=== PATIENT | female | born 1995 | race Hispanic/Latino ===

== ENCOUNTER 2016-11-10 11:46 | Emergency (ER) | payer OTHER ==
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
[2016-11-10] MEDS ORDERED: TYLENOL #3 PO ONE (15:38)
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
[2016-11-10 17:01] VITALS: BP 114/76
== END 2016-11-10 17:01 | disposition home or self-care (01) ==
LOC: ED 11:46
DX: S02.2XXA Fracture of nasal bones, initial encounter for closed fracture (principal); S00.83XA Contusion of other part of head, initial encounter; S00.33XA Contusion of nose, initial encounter; M25.531 Pain in right wrist; J45.909 Unspecified asthma, uncomplicated; F17.200 Nicotine dependence, unspecified, uncomplicated; V89.2XXA Person injured in unspecified motor-vehicle accident, traffic, initial encounter; W22.10XA Striking against or struck by unspecified automobile airbag, initial encounter; Y93.89 Activity, other specified; Y99.8 Other external cause status; Y92.89 Other specified places as the place of occurrence of the external cause
CPT/HCPCS: 70486; 81025

== ENCOUNTER 2020-06-13 11:11 | Outpatient (CLI) | payer MEDICAID | END 2020-06-13 14:12 | disposition home or self-care (01) | LOC: LAB 11:11 → APU 13:50 → LAB 14:12 | PROVIDERS: ATTEND Obstetrics & Gynecology | DX: O26.893 Other specified pregnancy related conditions, third trimester (principal); Z67.11 Type A blood, Rh negative; O99.343 Other mental disorders complicating pregnancy, third trimester; J45.909 Unspecified asthma, uncomplicated; Z3A.29 29 weeks gestation of pregnancy; Z87.891 Personal history of nicotine dependence | CPT/HCPCS: 86850; 86900; 86901; 96372; J2790 ==

== ENCOUNTER 2020-08-17 21:50 | Inpatient (IN) | payer MEDICAID ==
[2020-08-17] MEDS ORDERED: MINERAL OIL 30 ML ORAL LIQD PO PRN (23:25)
[2020-08-17] MEDS ORDERED: LIDOCAINE (2%) 20 MG/1 ML VIAL 20 ML MDV INFILTRATI ONE (23:25)
[2020-08-17] MEDS ORDERED: TERBUTALINE 1 MG/1 ML INJ SUB-Q PRN (23:25)
[2020-08-17] MEDS ORDERED: fentaNYL 100 MCG/2 ML INJ IV PRN (23:25)
[2020-08-17] MEDS ORDERED: ONDANSETRON 4 MG/2 ML INJ IV PRN (23:25)
[2020-08-17] MEDS ORDERED: LACTATED RINGERS 1,000 ML IV SCH (23:30)
[2020-08-17] MEDS ORDERED: OXYTOCIN DRIP 30 UNITS/500 ML BAG IV SCH (23:45)
--- NOTE | 2020-08-18 00:37 | Ultrasound Report ---
ULTRASOUND OBSTETRIC LIMITED INDICATION / CLINICAL INFORMATION: PRESENTATION. Clinical Gestational Age (GA) in weeks, days: 38, 4 TECHNIQUE: Transabdominal. COMPARISON: None available. FINDINGS: HEART RATE (beats per minute): 136 AMNIOTIC FLUID INDEX (cm) = not evaluated (normal = 7-24 cm) PRESENTATION: Cephalic. ADDITIONAL FINDINGS: None. IMPRESSION: 1. Cephalic presentation. Signer Name: Calvin Randall MD Signed: 08/18/2020 12:33 AM Workstation Name: [id number]
[2020-08-18 01:33] LABS: Alanine Aminotransferase 9 units/L (7-56)
[2020-08-18 01:35] LABS: Mean Corpuscular HGB Conc 34 % (30-34); Mean Corpuscular Volume 95 fl (79-97); Platelet Count 165 K/mm3 (140-440); Red Blood Count 4.34 M/mm3 (3.65-5.03); Red Cell Distribution Width 13.4 % (13.2-15.2)
[2020-08-18] MEDS ORDERED: ePHEDrine SULFATE 50 MG/1 ML INJ IV PRN (02:56)
[2020-08-18] MEDS ORDERED: NALOXONE 2 MG/2 ML INJ IV PRN (02:56)
--- NOTE | 2020-08-18 02:57 | Anesthesia Consultation ---
Anesthesia Consult and Med Hx Date of service: 08/18/20 - Airway Anesthetic Teeth Evaluation: Chipped ROM Head & Neck: Adequate Mental/Hyoid Distance: Adequate Mallampati Class: Class II Intubation Access Assessment: Probably Good - Pulmonary Exam CTA: Yes - Cardiac Exam Cardiac Exam: RRR - Pre-Operative Health Status ASA Pre-Surgery Classification: ASA2 Proposed Anesthetic Plan: Epidural - Pulmonary Hx Asthma: Yes (last attack 2 years ago) COPD: No Hx Pneumonia: No - Cardiovascular System Hx Hypertension: No - Central Nervous System Hx Seizures: No Hx Psychiatric Problems: Yes (anxiety) - Endocrine Hx Renal Disease: No Hx End Stage Renal Disease: No Hx Hypothyroidism: No Hx Hyperthyroidism: No - Hematic Hx Anemia: No Hx Sickle Cell Disease: No - Other Systems Hx Alcohol Use: (not since ) Hx Obesity: Yes
--- NOTE | 2020-08-18 02:58 | Progress Note ---
Labor Epidural - Labor Epidural Start Time: 02:45 Stop Time: 02:49 Performed by:: PORTIA VALLADARES Procedure: Patient is requesting epidural for labor pain. H&P, and labs reviewed. Procedure explained, questions answered, consent obtained. Patient in sitting position with blood pressure cuff and pulse ox on and working. Timeout performed immediately before start of procedure. Sterile chlorahexadine 0.5% prep/drape. 3 mL 1% lidocaine skin wheal at L[3]-L[4]. 18-gauge MTailor epidural needle advanced to [id number] with saline at [7] cm. Epidural dexmedetomidine [30] mcg administered. Epidural catheter advanced to [12] cm, negative aspiration for blood and csf, negative test dose 3 ml 1.5% lidocaine with epinephrine. Sterile steri-strips and tegaderm applied, followed by tape reinforcement. Patient tolerated procedure well.
[2020-08-18 03:02] LABS: Uric Acid 6.2 mg/dL (3.5-7.6)
[2020-08-18] MEDS: fentaNYL-BUPIV 2 MCG/ML-0.125% 200 MCG/100 ML BAG EPIDURAL SCH ×2 (03:30→11:35)
--- NOTE | 2020-08-18 04:24 | History and Physical Report ---
History of Present Illness Date of examination: 08/18/20 Date of admission: 08/17/20 23:26 Chief complaint: contractions History of present illness: 25yo a 38w5d presents with contractions. She reports symptoms beginning last pm increasing in intensity and frequency. At initial presentation, she denies leakage of fluid or vaginal bleeding. She acknowledges movement. No additional complaints. Past History - Obstetrical History : 1 Medications and Allergies Allergies Allergy/AdvReac Type Severity Reaction Status Date / Time No Known Allergies Allergy Unverified 11/10/16 12:11 Home Medications Medication Instructions Recorded Confirmed Last Taken Type Acetaminophen/Codeine [Tylenol 1 tab PO Q4HR PRN #20 tablet 11/10/16 Unknown Rx /Codeine # 3 tab] Active Meds: Active Medications Ephedrine Sulfate (Ephedrine Sulfate 50 Mg/1 Ml Inj) 10 mg IV Q2M PRN PRN Reason: Hypotension Ephedrine Sulfate (Ephedrine Sulfate 50 Mg/1 Ml Inj) 10 mg IV Q2M PRN PRN Reason: Hypotension Fentanyl (Fentanyl 100 Mcg/2 Ml Inj) 100 mcg IV Q2H PRN PRN Reason: Pain,Severe (7-10) LABOR PAIN Last Admin: 08/18/20 00:47 Dose: 100 mcg Documented by: Lactated Ringer's (Lactated Ringers) 1,000 mls @ 125 mls/hr IV DIRECT SHABNAM Oxytocin/Sodium Chloride (Pitocin/Ns 30 Unit/500ml) 30 units in 500 mls @ 40 mls/hr IV TITR SHABNAM; Protocol Oxytocin/Sodium Chloride (Pitocin/Ns 30 Unit/500ml) 30 units in 500 mls @ 2 mls/hr IV TITR SHABNAM; Protocol Fentanyl/Bupivacaine/Sodium Chlor (Fentanyl-Bupiv 2 Mcg/Ml-0.125%) 200 mcg in 100 mls @ 12 mls/hr EPIDURAL TITR SHABNAM; Protocol Last Admin: 08/18/20 03:30 Dose: 12 mls/hr Documented by: Mineral Oil (Mineral Oil 30 Ml Oral Liqd) 30 ml PO QHS PRN PRN Reason: Constipation Naloxone HCl (Naloxone 2 Mg/2 Ml Inj) 0.2 mg IV Q5M PRN PRN Reason: Respiratory sedation Ondansetron HCl (Ondansetron 4 Mg/2 Ml Inj) 4 mg IV Q8H PRN PRN Reason: Nausea And Vomiting Terbutaline Sulfate (Terbutaline 1 Mg/1 Ml Inj) 0.25 mg SUB-Q ONCE PRN PRN Reason: Hyperstimulation/Hypertonicity - Vital Signs Vital signs: Vital Signs Temp Pulse Resp BP Pulse Ox 99 F 80 18 144/95 97 08/17/20 22:01 08/17/20 22:01 08/17/20 22:01 08/17/20 22:01 08/17/20 22:01 Temp Pulse Resp BP Pulse Ox 98.8 F 88 15 113/65 97 08/18/20 04:09 08/18/20 04:06 08/18/20 04:09 08/18/20 03:55 08/18/20 04:06 Results Result Diagrams: 08/17/20 01:00 08/17/20 01:00 Abnormal lab results 08/17/20 08/17/20 Range/Units 01:00 01:00 WBC 13.8 H (4.5-11.0) K/mm3 Lactate Dehydrogenase 219 H (91-180) units/L All other labs normal.
[2020-08-18 04:36] LABS: Creatinine,Urine 292.8 mg/dL (0.1-20.0); Protein/Creatinine Ratio,Urine 0.56
[2020-08-18 04:46] LABS: Color,Urine Amber (Yellow)
[2020-08-18 04:48] LABS: Bacteria,Urine 1+ /HPF (Negative); Epithelial Casts,Urine 4 /HPF; Ictotest,Urine Negative (Negative)
[2020-08-18] MEDS: ePHEDrine SULFATE 50 MG/1 ML INJ IV PRN ×2 (05:01→06:26)
--- NOTE | 2020-08-18 06:06 | History and Physical Report ---
History of Present Illness Date of examination: 08/18/20 Date of admission: 08/17/20 23:26 Chief complaint: Contractions History of present illness: 25yo G1 at 38w5d presents with contractions. She reports contractions beginning last pm increasing in intensity and frequency. At presentation she denied leakage of fluid or vaginal bleeding. She has no additional complaints. Her has been complicated by depression, hsv II, obesity and rh negative status. PNC per [facility]. 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 Social history: no significant social history - Obstetrical History : 1 Para: 0 Medications and Allergies Allergies Allergy/AdvReac Type Severity Reaction Status Date / Time No Known Allergies Allergy Unverified 11/10/16 12:11 Home Medications Medication Instructions Recorded Confirmed Last Taken Type Acetaminophen/Codeine [Tylenol 1 tab PO Q4HR PRN #20 tablet 11/10/16 Unknown Rx /Codeine # 3 tab] Active Meds: Active Medications Ephedrine Sulfate (Ephedrine Sulfate 50 Mg/1 Ml Inj) 10 mg IV Q2M PRN PRN Reason: Hypotension Last Admin: 08/18/20 05:01 Dose: 10 mg Documented by: Ephedrine Sulfate (Ephedrine Sulfate 50 Mg/1 Ml Inj) 10 mg IV Q2M PRN PRN Reason: Hypotension Fentanyl (Fentanyl 100 Mcg/2 Ml Inj) 100 mcg IV Q2H PRN PRN Reason: Pain,Severe (7-10) LABOR PAIN Last Admin: 08/18/20 00:47 Dose: 100 mcg Documented by: Lactated Ringer's (Lactated Ringers) 1,000 mls @ 125 mls/hr IV DIRECT SHABNAM Oxytocin/Sodium Chloride (Pitocin/Ns 30 Unit/500ml) 30 units in 500 mls @ 40 mls/hr IV TITR SHABNAM; Protocol Oxytocin/Sodium Chloride (Pitocin/Ns 30 Unit/500ml) 30 units in 500 mls @ 2 mls/hr IV TITR SHABNAM; Protocol Fentanyl/Bupivacaine/Sodium Chlor (Fentanyl-Bupiv 2 Mcg/Ml-0.125%) 200 mcg in 100 mls @ 12 mls/hr EPIDURAL TITR SHABNAM; Protocol Last Admin: 08/18/20 03:30 Dose: 12 mls/hr Documented by: Mineral Oil (Mineral Oil 30 Ml Oral Liqd) 30 ml PO QHS PRN PRN Reason: Constipation Naloxone HCl (Naloxone 2 Mg/2 Ml Inj) 0.2 mg IV Q5M PRN PRN Reason: Respiratory sedation Ondansetron HCl (Ondansetron 4 Mg/2 Ml Inj) 4 mg IV Q8H PRN PRN Reason: Nausea And Vomiting Terbutaline Sulfate (Terbutaline 1 Mg/1 Ml Inj) 0.25 mg SUB-Q ONCE PRN PRN Reason: Hyperstimulation/Hypertonicity Review of Systems Cardiovascular: no chest pain, no shortness of breath Respiratory: no cough Gastrointestinal: no abdominal pain - Vital Signs Vital signs: Vital Signs Temp Pulse Resp BP Pulse Ox 99 F 80 18 144/95 97 08/17/20 22:01 08/17/20 22:01 08/17/20 22:01 08/17/20 22:01 08/17/20 22:01 Temp Pulse Resp BP Pulse Ox 98.7 F 116 H 15 126/52 99 08/18/20 05:37 08/18/20 05:56 08/18/20 04:09 08/18/20 05:55 08/18/20 05:56 - Physical Exam Breasts: Positive: deferred Cardiovascular: Regular rate Lungs: Positive: Clear to auscultation Abdomen: Positive: normal appearance Genitourinary (Female): Positive: normal external genitalia. Negative: perineal/vulvar lesions Cervix: Negative: lesion Uterus: Positive: other (gravid) Extremities: Positive: normal - Obstetrical FHR: category 1 Cervical Dilatation: 1 (on admission) Cervical Effacement Percentage: 80 Uterine Contraction Frequency (min): q2 Uterine Contraction Pattern: Regular Uterine Contraction Intensity: Strong/Firm Results Result Diagrams: 08/17/20 01:00 08/17/20 01:00 Abnormal lab results 08/17/20 08/17/20 08/18/20 Range/Units 01:00 01:00 03:10 WBC 13.8 H (4.5-11.0) K/mm3 Lactate Dehydrogenase 219 H (91-180) units/L Urine Creatinine 292.8 H (0.1-20.0) mg/dL Urine Total Protein 163 H (5-11.8) mg/dL All other labs normal. Assessment and Plan Augmentation of early labor as needed, anticipate vaginal delivery - Patient Problems (1) Gestational hypertension Current Visit: Yes Status: Acute Plan to address problem: Protein/Creatine ratio pending -continue to monitor BP -add IV antihypertensives prn (2) Normal labor Current Visit: Yes Status: Acute Plan to address problem: Admitted in early labor, -rapid change noted, now 550/-2 PNC per [facility] -labs reviewed, on chart -GBS negative Status: -cephalic presentation -Cat I tracing currently -Cat II noted with rapid change, now improved s/p resuscitative efforts -ISE placed, continue to monitor closely R/B/A/I for delivery reviewed, patient understands need for operative delivery if deemed appropriate for maternal/ indications. All questions were answered, the patient expressed understanding, and agrees to proceed if indicated. (3) Herpes Current Visit: Yes Status: Acute Plan to address problem: no lesions on PE -reports no prodromal symptoms -reports Valtrex use sporadically (4) Herpes infection during in third trimester Current Visit: Yes Status: Acute (5) Depression affecting Current Visit: Yes Status: Acute Plan to address problem: Citalopram 30 mg daily -assess status PP (6) Rh negative status during Current Visit: Yes Status: Acute Plan to address problem: -Rhogam if indicated PP
[2020-08-18] MEDS: OXYTOCIN DRIP 30 UNITS/500 ML BAG IV SCH ×5 (08:06→11:53)
[2020-08-18] MEDS ORDERED: ONDANSETRON 4 MG/2 ML INJ IV PRN (14:47)
[2020-08-18] MEDS ORDERED: PROMETHAZINE 25 MG RECT SUPP PR PRN (14:47)
[2020-08-18] MEDS ORDERED: MAGNESIUM HYDROXIDE (MOM) ORAL LIQD UDC PO PRN (14:47)
[2020-08-18] MEDS ORDERED: diphenhydrAMINE 25 MG CAP PO PRN (14:47)
[2020-08-18] MEDS ORDERED: PROMETHAZINE 25 MG TAB PO PRN (14:47)
[2020-08-18] MEDS ORDERED: WITCH HAZEL/ GLYCERIN PAD TP PRN (14:47)
[2020-08-18] MEDS ORDERED: LANOLIN/ZINC/DIMETHICONE (LANSINOH) 7 GM TP PRN (14:47)
--- NOTE | 2020-08-18 14:51 | Procedure Note ---
OB Delivery Note - Delivery Date of Delivery: 08/18/20 Surgeon: LIBBY DURAN (Jovanni Tafoya, [facility]) Estimated blood loss: 300cc - Vaginal Delivery presentation: vertex, compound (right hand) Delivery position: OA Intrapartum events: PROM->1hr before delivery, meconium, preeclampsia Delivery induction: none Delivery augmentation: pitocin Delivery monitor: external FHT, external uterine Route of delivery: Delivery placenta: spontaneous Delivery cord: nuchal cord (x1 reduced on perineum), 3 umbilical vessels Episiotomy: none Delivery laceration: 1st degree (extending to bilateral labia) Delivery repair: vicryl Anesthesia: epidural - A at 1 minute: 7 at 5 minutes: 9 Infant Gender: Female
[2020-08-18] MEDS ORDERED: IBUPROFEN 600 MG TAB PO SCH (15:00)
[2020-08-18] MEDS ORDERED: CITALOPRAM 20 MG TAB PO SCH (18:00)
[2020-08-18] MEDS: IBUPROFEN 600 MG TAB PO SCH (23:00)
[2020-08-19] MEDS: IBUPROFEN 600 MG TAB PO SCH ×3 (05:42→23:18)
[2020-08-19] MEDS ORDERED: DIPHtheria,PERTUSSIS(ACELL),TETANUS VACCINE/PF 0.5 ML VIAL IM ONE (06:00)
[2020-08-19 07:28] LABS: Hematocrit 34.1 % (30.3-42.9); Hemoglobin 11.7 gm/dl (10.1-14.3)
--- NOTE | 2020-08-19 08:29 | Post Anesthesia Evaluation ---
- Post Anesthesia Evaluation Patient Participated: Yes Airway Patent: Yes Stable Respiratory Function: Yes Nausea/Vomiting: No Temp > 96.8F: Yes Pain Manageable: Yes Adequeate Hydration: Yes Anesthesia Complications: No Block Receding Appropriately: Yes Patient on Ventilator: No
--- NOTE | 2020-08-19 08:34 | Progress Note ---
Assessment and Plan A: PPD1 s/p @ term Rh negative s/p Rhogam received 08/18/20 History of depression. 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 Subjective - Subjective Date of service: 08/19/20 Principal diagnosis: s/p @ term Interval history: PPD1 patient is feeling well and without complaints. She received her Rhogam injection yesterday. Patient reports: appetite normal, voiding normally, pain well controlled, ambulating normally : doing well Objective - Vital Signs Latest vital signs: Vital Signs Temp Pulse Resp BP BP Pulse Ox 08/18/20 23:45 98.2 F 103 H 20 123/78 96 08/18/20 20:32 98.2 F 103 H 20 130/76 95 08/18/20 16:48 98.6 F 104 H 19 134/82 08/18/20 16:04 83 135/79 08/18/20 15:49 87 133/77 08/18/20 15:36 94 H 98 08/18/20 15:34 88 130/75 08/18/20 15:31 96 H 98 08/18/20 15:26 92 H 97 08/18/20 15:21 89 97 08/18/20 15:18 103 H 119/77 08/18/20 15:16 113 H 98 08/18/20 15:11 117 H 97 08/18/20 15:06 104 H 98 08/18/20 15:03 100 H 116/67 08/18/20 15:01 103 H 97 08/18/20 14:56 106 H 98 08/18/20 14:51 99 H 96 08/18/20 14:49 102 H 115/71 08/18/20 14:46 110 H 98 08/18/20 14:41 109 H 98 08/18/20 14:36 123 H 97 08/18/20 14:31 111 H 97 08/18/20 14:26 111 H 97 08/18/20 14:21 107 H 97 08/18/20 14:19 110 H 129/60 08/18/20 14:16 121 H 97 08/18/20 14:12 164 H 184/85 08/18/20 14:11 152 H 99 08/18/20 14:06 132 H 100 08/18/20 14:01 141 H 100 08/18/20 13:56 147 H 99 08/18/20 13:51 123 H 99 08/18/20 13:46 111 H 99 08/18/20 13:41 122 H 139/87 100 08/18/20 13:36 119 H 99 08/18/20 13:31 126 H 99 08/18/20 13:26 112 H 100 08/18/20 13:21 132 H 100 08/18/20 13:16 117 H 99 08/18/20 13:11 108 H 131/82 100 08/18/20 13:06 102 H 100 08/18/20 13:01 106 H 100 08/18/20 12:56 104 H 100 08/18/20 12:51 117 H 100 08/18/20 12:46 103 H 100 08/18/20 12:41 105 H 131/80 100 08/18/20 12:36 103 H 100 08/18/20 12:31 107 H 100 08/18/20 12:26 101 H 100 08/18/20 12:21 97 H 100 08/18/20 12:16 96 H 99 08/18/20 12:11 99 H 127/74 100 08/18/20 12:06 99 H 100 08/18/20 12:01 103 H 99 08/18/20 11:56 113 H 100 08/18/20 11:51 102 H 99 08/18/20 11:46 100 H 99 08/18/20 11:43 111 H 198/118 08/18/20 11:41 115 H 99 08/18/20 11:36 107 H 99 08/18/20 11:31 111 H 99 08/18/20 11:26 122 H 99 08/18/20 11:21 108 H 99 08/18/20 11:16 112 H 99 08/18/20 11:11 114 H 102/59 99 08/18/20 11:06 106 H 99 08/18/20 11:01 112 H 99 08/18/20 10:56 110 H 99 08/18/20 10:51 96 H 99 08/18/20 10:46 110 H 99 08/18/20 10:42 100 H 115/60 08/18/20 10:41 105 H 99 08/18/20 10:36 106 H 99 08/18/20 10:31 114 H 98 08/18/20 10:26 115 H 98 08/18/20 10:21 101 H 99 08/18/20 10:16 121 H 98 08/18/20 10:11 104 H 110/65 99 08/18/20 10:06 109 H 98 08/18/20 10:01 117 H 99 08/18/20 09:56 109 H 99 08/18/20 09:51 103 H 99 08/18/20 09:46 98 H 99 08/18/20 09:42 100 H 109/56 08/18/20 09:41 102 H 99 08/18/20 09:36 103 H 99 08/18/20 09:31 115 H 99 08/18/20 09:26 100 H 99 08/18/20 09:21 101 H 99 08/18/20 09:16 116 H 99 08/18/20 09:11 102 H 93/77 98 08/18/20 09:06 113 H 98 08/18/20 09:01 102 H 99 08/18/20 08:56 93 H 99 08/18/20 08:51 107 H 99 08/18/20 08:46 114 H 99 08/18/20 08:42 93 H 117/62 08/18/20 08:41 87 99 08/18/20 08:36 92 H 99 08/18/20 08:31 110 H 99 Intake and Output 08/18/20 08/19/20 08/19/20 23:59 07:59 15:59 Intake Total 300 Output Total 1750 Balance -1450 Intake: Oral 120 Intake, Free Water 180 Output: Urine 1750 Void 1750 Other: Total, Intake Amount 120 Total, Output Amount 600 # Voids Void 1 1 - Exam Uterus: Present: firm, fundal height below umbilicus
--- NOTE | 2020-08-19 08:36 | Discharge Summary ---
Providers - Providers Date of Admission: 08/17/20 23:26 Attending physician: SUMA JARAMILLO MD Primary care physician: SUMA JARAMILLO MD Plan - Provider Discharge Summary Additional instructions: [] Smoking cessation referral if applicable(refer to patient education folder for contact #) [] Refer to [facility]'s [facility] Booklet Call your doctor immediately for: * Fever > 100.5 * Heavy vaginal bleeding ( >1 pad per hour) * Severe persistent headache * Shortness of breath * Reddened, hot, painful area to leg or breast * Drainage or odor from incision. * Keep incision clean and dry at all times and follow doctor's instructions regarding bathing/showering - Follow up plan Follow up: SUMA JARAMILLO MD [Primary Care Provider] - 7 Days
--- NOTE | 2020-08-19 08:38 | Discharge Summary ---
Providers - Providers Date of Admission: 08/17/20 23:26 Date of discharge: 08/19/20 Attending physician: SUMA JARAMILLO MD Primary care physician: SUMA JARAMILLO MD Hospitalization Reason for admission: active labor Delivery: Episiotomy: none Laceration: 1st degree complications: none Discharge diagnosis: IUP at term delivered baby: female Condition at discharge: Good Disposition: DC-01 TO HOME OR SELFCARE Plan - Provider Discharge Summary Activity: no sex for 6 weeks, no heavy lifting 4 weeks, no strenuous exercise Diet: routine Instructions: routine Additional instructions: [] Smoking cessation referral if applicable(refer to patient education folder for contact #) [] Refer to [facility]'s [facility] Booklet Call your doctor immediately for: * Fever > 100.5 * Heavy vaginal bleeding ( >1 pad per hour) * Severe persistent headache * Shortness of breath * Reddened, hot, painful area to leg or breast * Drainage or odor from incision. * Keep incision clean and dry at all times and follow doctor's instructions regarding bathing/showering Please follow up with in 1 week for BP check. - Follow up plan Follow up: LIBBY DURAN CNM [Advanced Practice Nurse] - 7 Days
[2020-08-20] MEDS: IBUPROFEN 600 MG TAB PO SCH (06:05)
[2020-08-20 08:52] VITALS: BP 121/84
== END 2020-08-20 12:59 | disposition home or self-care (01) | DRG 774 ==
LOC: TRG 21:50 → APU 21:57 → TRG 23:25 → LD 23:26 → OB 08-18 16:35
PROVIDERS: ADMIT Obstetrics & Gynecology; ATTEND Obstetrics & Gynecology
PROC: 10E0XZZ Delivery of Products of Conception, External Approach (ICD-10-PCS; principal; 2020-08-18)
PROC: 0HQ9XZZ Repair Perineum Skin, External Approach (ICD-10-PCS; 2020-08-18)
PROC: 3E0234Z Introduction of Serum, Toxoid and Vaccine into Muscle, Percutaneous Approach (ICD-10-PCS; 2020-08-18)
PROC: 3E0R3BZ Introduction of Anesthetic Agent into Spinal Canal, Percutaneous Approach (ICD-10-PCS; 2020-08-18)
PROC: 00HU33Z Insertion of Infusion Device into Spinal Canal, Percutaneous Approach (ICD-10-PCS; 2020-08-18)
PROC: 3E0234Z Introduction of Serum, Toxoid and Vaccine into Muscle, Percutaneous Approach (ICD-10-PCS; 2020-08-19)
DX: O14.94 Unspecified pre-eclampsia, complicating childbirth (principal); O98.52 Other viral diseases complicating childbirth; O77.0 Labor and delivery complicated by meconium in amniotic fluid; Z3A.38 38 weeks gestation of pregnancy; Z37.0 Single live birth; B00.9 Herpesviral infection, unspecified; O99.52 Diseases of the respiratory system complicating childbirth; O99.344 Other mental disorders complicating childbirth; O99.214 Obesity complicating childbirth; E66.9 Obesity, unspecified; F41.9 Anxiety disorder, unspecified; J45.909 Unspecified asthma, uncomplicated; O70.0 First degree perineal laceration during delivery; F32.9 Major depressive disorder, single episode, unspecified; O26.893 Other specified pregnancy related conditions, third trimester; Z67.91 Unspecified blood type, Rh negative; Z23 Encounter for immunization; Z20.822 Contact with and (suspected) exposure to COVID-19; O13.4 Gestational [pregnancy-induced] hypertension without significant proteinuria, complicating childbirth; O69.81X0 Labor and delivery complicated by cord around neck, without compression, not applicable or unspecified
CPT/HCPCS: 36415; 76815; 81001; 82565; 82570; 83615; 84156; 84450; 84460; 84550; 85014; 85018; 85027; 85460; 85461; 86592; 86850; 86870; 86900; 86901; 90471; 90715; G0378; J2590; J2790; J3010; J7120; U0003